=== PATIENT | male | born 2000 | race African-American/Black ===

== ENCOUNTER 2025-03-18 15:21 | Emergency (ER) | payer OTHER, SELFPAY ==
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
[2025-03-18 15:36] VITALS: BP 136/88; PULSE 98; RESP 16; TEMP 36.8; O2SAT 99
[2025-03-18] MEDS: HYDROcodone/acetaminophen (*CRX) 5-325 MG TABLET 1 TAB PO (16:03)
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
== END 2025-03-18 18:23 ==
PROVIDERS: Emergency Provider Emergency Medicine
DX: S00.83XA Contusion of other part of head, initial encounter (principal); S00.33XA Contusion of nose, initial encounter; S00.12XA Contusion of left eyelid and periocular area, initial encounter; S00.11XA Contusion of right eyelid and periocular area, initial encounter; H11.32 Conjunctival hemorrhage, left eye; M79.7 Fibromyalgia; Y04.2XXA Assault by strike against or bumped into by another person, initial encounter
CPT/HCPCS: 70450; 70486; 71046; 71100; 72125; 99284; A9270